=== PATIENT | female | born 1995 | race Caucasian/White ===

== ENCOUNTER 2025-08-22 11:22 | Outpatient (AMB) | payer OTHER, SELFPAY ==
--- NOTE | 2025-08-22 11:23 | A.OFFPC_ITS ---
Vital Signs 08/22/25 11:32 Height 5 ft 2.5 in Weight 219 lb 6 oz BMI 39.5 BP 102/65 Blood Pressure Location Rt brachial Position Sitting Respiration 12 Pulse 59 Pulse Source Pulse Oximeter Temp 97.5 F Temp Source Oral Pulse Oximetry (%) 97 Oxygen Delivery Method Room Air Intake Visit Reasons: CPE/reschedule from 08/14 Intake Note: New patient to establish care and cpe. Community Aide Required: No Allergies No Known Allergies Allergy (Verified 08/22/25 11:44) Medication List - Last Reconciled 08/22/25 by BENNY Padilla No Known Home Meds Tobacco use date assessed: 08/22/25 Dental Screening Dental Screen Date: 08/22/25 Did you have a dental visit in the last 12 months?: No Did you have a dental problem in the last 6 months where you did not have access to dental care?: No Was dental information given to patient?: Yes HPI HPI Comments History of Present Illness Details 30 y/o F with migraine without aura, sea esperanza allergies, obesity, generalized anxiety disorder, Tati's disease, insulin resistance syndrome, elevated CRP, low methylmalonic acid, eczema, dyslipidemia with elevated Apolipo B FHX: Dad alive Htn, hld, asthma, thyroid; mom alive; PGF DM dementia depression etoh; PGM alive; MGM dm 2 dementia, kidney stones; MGF alive dm 2 str mayi lung ca; sister alive thyroid; sister alive allergies Health Maintenance: Tdap 2017 Flu declined 08/22/25 History of Present Illness The patient is a 30-year-old female presenting to establish care and for evaluation of skin concerns. Previous PCP [facility] records rec'd and reviewed Scalp Lesions: - The patient reports bumps on her head that are sometimes sore to the touch, wh ich she describes as half pink brown circles. - She denies they are primarily open sor es, although she may have opened them herself. - She has a history of eczema, which was previously located on her arms. Submammary Rash: - The patient reports an intermittent, f laky rash under her breasts. - She was previously prescribed a medica tion for it that she never picked up, and the rash resolved on its own but has since returned. Tati's Thyroiditis: - The patient has a known history of Has himoto's thyroiditis but is not on any medication and states she does not fully understand the diagnosis. - Her last lab work was performed in , and she has no history of a thyroid ultrasound. Anxiety Disorder: - The patient has a history of generaliz ed anxiety, and recent screening questionnaires were positive for symptoms of anxiety and depression. - She agrees with the screening results, attributing her symptoms over the past couple of weeks to work-related stress. - She is amenable to seeking counseling. Other Medical History: - Past medical history is significant fo r obesity with a BMI of 39.5, migraines without aura, and seasonal allergies. - She has dyslipidemia with an apolipopr otein A of 133 and a normal apolipoprotein B of 88. - Other history includes an elevated CRP of 8.7 in 2022, low methylmalonic acid, and insulin resistance. Past Medical History - Obesity with a BMI of 39.5 - Migraines without aura - Seasonal allergies - Dyslipidemia with elevated apolipoprot ein A of 133 and normal apolipoprotein B of 88 - Elevated C-reactive protein of 8.7 in 2022 - Low methylmalonic acid - Tati's thyroiditis, not currently on medication - Insulin resistance - Generalized anxiety disorder - Eczema, previously on arms Review of Systems - Integumentary: Reports painful bumps o n her scalp and an intermittent, flaky rash under her breasts??. - Neck: Denies pain or tenderness in her neck. - Psychiatric: Endorses symptoms of anxi ety and depression for the past couple of weeks related to work stress. - General: Denies feeling weak or faint with blood draws currently. Physical Exam General: Well developed, well nourished, in no acute distress. Appears stated age. Head: Normocephalic, atraumatic. Well demarcated erythematous plaques on top of scalp; flat brown freckles noted on L scalp Eyes: Pupils are equal, round and reactive to light and accommodation. Conjunctivae are clear. Vision grossly normal. Thyromegaly, no nodules, nontender Lungs: Clear to auscultation bilaterally. No rales, rhonchi or wheeze noted. Good air flow in all mcdonnell. Heart: Regular rate and rhythm. No murmurs, click, rubs or gallops are noted. Pulses: Peripheral pulses are equal and palpable bilaterally. Extremities: No clubbing, cyanosis nor edema is noted. Skin: Faint fungal rash under bilat breasts Psych: Mood and affect appropriate. Patient reports symptoms of anxiety and depression, possibly related to work stress. Results - Labs (2022): Elevated apolipoprotein A of 133, normal apolipoprotein B of 88, and elevated C-reactive protein of 8.7. - Labs (past): History of low methylmalo ryanne acid. Medical Decision Making The patient is a 30-year-old female presenting to [facility] with multiple chronic and acute issues. Her primary complaints today are skin-related, including sore bumps on her scalp and an intermittent rash under her breasts. The scalp lesions are suspicious for scalp psoriasis or eczema, and I will prescribe a topical solution and refer her to dermatology for a definitive diagnosis. The inframammary rash is minimal on exam, which is suggestive of intertrigo, likely candidal. I will prescribe nystatin powder, as she preferred this formulation, with instructions for use. Review of her records indicates a history of Ttai's thyroiditis, for which she is not currently treated, and physical exam reveals a large thyroid gland. I will therefore order updated thyroid function tests and a thyroid ultrasound to evaluate its structure and function. Her intake screening was positive for anxiety and depression, which she attributes to work stress. As she is open to therapy, I will place a referral for behavioral health counseling. We will address these presenting issues today and schedule a full physical examination in 4 weeks to review lab results and response to initial treatments. Plan 1. Scalp Lesions (Likely Psoriasis/Eczem a) - Prescribed a topical solution to be ru bbed into the scalp twice a day after showering. - A referral was placed for dermatology in [place] for further evaluation and management. 2. Submammary Rash (Likely Candidiasis) - Prescribed nystatin powder to be appli ed to the affected area once or twice daily until the rash resolves, with refills provided. - The patient was instructed to stop usi ng the powder once the skin is normal and that it is okay to restart if the rash recurs. 3. Tati's Thyroiditis / Goiter - Ordered updated blood work to check th yroid function. - Ordered a thyroid ultrasound to evalua te the enlarged thyroid gland, to be scheduled via [facility]. 4. Anxiety Disorder - A referral was placed for counseling/t alk therapy; a referral team will contact the patient to set up an appointment. 5. Health Maintenance - The patient declined the influenza vac cine for this season. - Labs will be drawn in the office today . - Scheduled a follow-up appointment for a full physical on September 26 to review results and assess response to treatment. Patient Instructions - Apply the prescribed topical solution to your scalp twice a day after you shower. - Apply the prescribed powder under your breasts once or twice a day until the rash disappears. You can restart it if the rash comes back. - Go for blood work in the office today before you leave. Let the mini lab operator know that you get nervous about needles. - You will get a phone call from [facility] to schedule your thyroid ultrasound. - A referral team will contact you to se t up an appointment with a counselor for anxiety. - Sign up for the [employer] patient portal using the link in the email you rece ived. This link is only active for 24 hours. Use the portal to send messages. - Your next appointment for a full physi gabo is scheduled for September 26. Consent Verbal permission was obtained from the patient before proceeding with the physical examination of her scalp, neck, and the rash under her breasts. The risks of blood draws, specifically fainting, were discussed, and the patient was given the option to lie down for the procedure. The patient agreed to proceed with the blood draw while seated and was advised to inform the mini lab operator of her nervousness. Patient was informed and verbally consented to the use of an ambient scribe for clinic note documentation during this visit. Total time spent caring for the patient today was 45 minutes. This includes time spent before the visit reviewing the chart, time spent during the visit, and time spent after the visit on documentation, reviewing laboratory results, diagnostic imaging, medications, performing a medically necessary evaluation, counseling on diagnoses, care coordination, ordering appropriate tests, ordering appropriate medications, review of tests performed by other providers, reporting test results with the patient, communication with other healthcare providers. 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 1. Little interest or pleasure in doing things: several days 2. Feeling down, depressed, or hopeless: several days 3. Trouble falling or staying asleep, or sleeping too much: several days 4. Feeling tired or having little energy: several days 5. Poor appetite or overeating: not at all 6. Feeling bad about yourself - or that you are a failure or have let yourself or your family down: more than half the days 7. Trouble concentrating on things, such as reading the newspaper or watching television: not at all 8. Moving or speaking so slowly that other people could have noticed. Or the opposite - being so fidgety or restless that you have been moving around a lot more than usual: not at all 9. Thoughts that you would be better off or of hurting yourself in some way: not at all Total score: 6 Depression Screening Interpretation: Positive Depression Screening Follow-up: Existing condition and In treatment Depression Screening Done: Yes 09903 - PHQ-9 Billing: Yes Source: Developed by Drs. Lester Grimes, Carol Thomas, Guillermo Jimenez and colleagues, with an educational jagdeep from [employer]. Thrive Questionnaire Date Thrive assessed: 08/22/25 I am a: Patient What is your living situation today?: I have a steady place to live Within the past 12 months, did the food you bought not last and you didn't have the money to get more?: Never true Within the past 12 months, did you worry whether your food would run out before you got money to buy more?: Never true Do you have trouble paying for medicines?: No Do you have trouble getting transportation to medical appointments?: No Do you have trouble paying your heating and electricity bill?: No Do you have trouble taking care of your child, family member or friend?: No Do you have trouble with day-to-day activities such as bathing, preparing meals, shopping, managing finances, etc.?: No Are you currently unemployed and looking for a job?: No Are you interested in more education?: I choose not to answer this question Please select the resources that you would like help with: None Currently or been in a relationship where the following occur: No concerns reported THRIVE Score: 0 AUDIT C Alcohol Use Questionnaire (AUDIT-C) 1. How often do you have a drink containing alcohol?: 2-4 times a month 2. How many drinks containing alcohol do you have on a typical day when you are drinking?: 3 or 4 3. How often do you have six or more drinks on one occasion?: Less than monthly Total Score: 4 Score Reviewed/Action Taken: Yes NAHEED-7 AMB Questionnaire NAHEED-7 Date NAHEED - 7 assessed: 08/22/25 Feeling nervous, anxious, or on edge: 3 = Nearly every day Not being able to stop or control worryin = Nearly every day Worrying too much about different things: 3 = Nearly every day Trouble relaxin = More than half the days Being so restless that it is hard to sit still: 0 = Not at all Becoming easily annoyed or irritable: 1 = Several days Feeling afraid as if something awful might happen: 2 = More than half the days Total NAHEED-7 score (0-4 normal; 5-9 mild; 10-14 moderate; 15-21 severe): 14 Source: Developed by Drs. Lester Grimes, Carol Thomas, Guillermo Jimenez and colleagues, with an educational jagdeep from [employer]. NAHEED-7 Assessment Billing NAHEED-7 Assessment Tool: NAHEED-7 Assessment 81986 Physical exam (Primary Care) Vital Signs: Last Vital Signs Temp 97.5 F 08/22/25 11:32 Pulse 59 08/22/25 11:32 Resp 12 08/22/25 11:32 BP 102/65 08/22/25 11:32 Pulse Ox 97 08/22/25 11:32 Oxygen Delivery Method Room Air 08/22/25 11:32 BMI result Body Mass Index 39.5 BMI Assessment/Plan discussion: High BMI High, discussed plan: lifestyle Tobacco/Smoking Status: Tobacco use Status Tobacco use date assessed 08/22/25 08/22/25 11:30 Patient Tobacco Use Status Never used Tobacco 08/22/25 11:30 e-Cigarette/Vaping Use Never Used 08/22/25 11:30 PHQ-9: PHQ-9 Score PHQ-9: Total score 6 08/22/25 11:30 Depression Screening Interpretation: Positive Depression Screening Follow-up: Existing condition and In treatment Thrive Assessment: Date of Thrive Assessment Date Thrive assessed 08/22/25 08/22/25 11:30 Currently or been in a relationship where the following occur: No concerns reported Coding Level of Care Code New Pt Level 4 (65957) Complex EM visit Add On G2211 Diagnoses Encounter to establish care Z76.89 Obesity (BMI 30-39.9) E66.9 Migraine without aura and without status migrainosus, not intractable G43.009 Status migrainosus presence: without status migrainosus Intractability: not intractable Seasonal allergies J30.2 Dyslipidemia E78.5 Elevated C-reactive protein (CRP) R79.82 Tati's disease E06.3 Insulin resistance syndrome E88.81 NAHEED (generalized anxiety disorder) F41.1 Eczema L30.9 Scalp psoriasis L40.9 Influenza vaccination declined Z28.21 Additional Codes NAHEED-7 Assessment Billing - NAHEED-7 Assessment Tool: NAHEED-7 Assessment 72937 ([id number]) PHQ-9 - 39565 - PHQ-9 Billing: Yes ([id number]) Assessment & Plan Assessment & Plan (1) Encounter to establish care: Code(s): Z76.89 - Persons encountering health services in other specified circumstances (2) Obesity (BMI 30-39.9): Code(s): E66.9 - Obesity, unspecified Category: Medical (3) Migraine without aura: Code(s): G43.009 - Migraine without aura, not intractable, without status migrainosus Category: Medical Qualifiers: Status migrainosus presence: without status migrainosus Intractability: not intractable Qualified Code(s): G43.009 - Migraine without aura, not intractable, without status migrainosus (4) Seasonal allergies: Code(s): J30.2 - Other seasonal allergic rhinitis Category: Medical (5) Dyslipidemia: Comment: Elevated apolipoprotein a 133 in 2022 Code(s): E78.5 - Hyperlipidemia, unspecified Category: Medical (6) Elevated C-reactive protein (CRP): Onset Date: 2022 Comment: 8.7 Code(s): R79.82 - Elevated C-reactive protein (CRP) Category: Medical (7) Tati's disease: Code(s): E06.3 - Autoimmune thyroiditis Category: Medical (8) Insulin resistance syndrome: Code(s): E88.81 - Metabolic syndrome and other insulin resistance Category: Medical (9) NAHEED (generalized anxiety disorder): Code(s): F41.1 - Generalized anxiety disorder Category: Medical (10) Eczema: Code(s): L30.9 - Dermatitis, unspecified Category: Medical (11) Scalp psoriasis: Code(s): L40.9 - Psoriasis, unspecified Category: Medical (12) Influenza vaccination declined: Onset Date: ~08/22/25 Code(s): Z28.21 - Immunization not carried out because of patient refusal Category: Medical Plan . Orders: Orders Complete Blood Count no Diff Today E06.3 - Autoimmune thyroiditis, E66.9 - Obesity, unspecified, E78.5 - Hyperlipidemia, unspecified, E88.81 - Metabolic syndrome and other insulin resistance Comprehensive Met. Panel Today E06.3 - Autoimmune thyroiditis, E66.9 - Obesity, unspecified, E78.5 - Hyperlipidemia, unspecified, E88.81 - Metabolic syndrome and other insulin resistance Hemoglobin A1c Today E06.3 - Autoimmune thyroiditis, E66.9 - Obesity, unspecified, E78.5 - Hyperlipidemia, unspecified, E88.81 - Metabolic syndrome and other insulin resistance Lipid Panel Today E06.3 - Autoimmune thyroiditis, E66.9 - Obesity, unspecified, E78.5 - Hyperlipidemia, unspecified, E88.81 - Metabolic syndrome and other insulin resistance Microalbumin, Random (w Creat) Today E06.3 - Autoimmune thyroiditis, E66.9 - Obesity, unspecified, E78.5 - Hyperlipidemia, unspecified, E88.81 - Metabolic syndrome and other insulin resistance TSH reflex Free T4 Today E06.3 - Autoimmune thyroiditis, E66.9 - Obesity, unspecified, E78.5 - Hyperlipidemia, unspecified, E88.81 - Metabolic syndrome and other insulin resistance Vitamin D 25-OH Total Today E06.3 - Autoimmune thyroiditis, E66.9 - Obesity, unspecified, E78.5 - Hyperlipidemia, unspecified, E88.81 - Metabolic syndrome and other insulin resistance Vitamin B12 and Folate Today E06.3 - Autoimmune thyroiditis, E66.9 - Obesity, unspecified, E78.5 - Hyperlipidemia, unspecified, E88.81 - Metabolic syndrome and other insulin resistance US thyroid Today E06.3 - Autoimmune thyroiditis Referrals Dermatology Referral L30.9 - Dermatitis, unspecified, L40.9 - Psoriasis, unspecified Nurse Navigator Referral F41.1 - Generalized anxiety disorder Medications: New fluocinonide 0.05% 1 appl topical BID-QID PRN 60 mL 0RF rash nystatin 1 appl topical DAILY 30 grams 2RF Patient Instructions: Walk-In Care (Urgent Care): We Make it Easy Walk-in for urgent medical issues such as: ? Seasonal Allergies ? Insect Bites ? Cough ? Diarrhea ? Acute Asthma Attacks ? Back, Knee or Joint Pain ? Ear Infection ? Fever without a Rash ? Headaches ? Nausea ? [place] Eye, Rash or Skin Irritation ? Sore Throat ? Sports Physicals ? Vomiting Most insurances are accepted. Patients do not need to be part of the [facility] to seek care at the walk-in clinic. Locations [address] [place] [address] Open Monday through Monday 8am-5pm *Hours may vary due to staffing availability. To confirm Walk-In Care hours please call. [address] [place] [address] , [place] [address] ? [phone] [facility] in [place] provides services to ages 18 and over. Open Monday-Monday: 7 a.m. to 5 p.m. and Monday: 9 a.m. to 3 p.m.* *Hours may vary due to staffing availability. To confirm Walk-In Care hours in [place], please call [phone]. [address] [place] [id number] ? [phone] [facility] [place] provides services to ages 12 and over. Open Monday-Monday: 8 a.m. to 5 p.m. Hours may vary due to staffing availability. To confirm Walk-In Care hours in [place], please call [phone]. LABORATORY SERVICES: [facility] ? Primary Location [address] [place] [address] Monday through Monday 6:00 AM ? 5:00 PM Monday 7:00 AM ? 11:00 AM* [phone] The [facility] Lab is centrally located near the front entrance of the [facility] for easy outpatient access. Convenient parking is provided for outpatients. *Hours may vary due to staffing availability. To confirm Laboratory hours for any location, please call [phone]. Offsite Location For your convenience, we offer offsite laboratory draw stations at the following locations: [address] [facility], [place] ? [address] [facility], [address], [place] Monday through Monday 7:30 AM ? 1:00 PM* [phone] *Hours may vary due to staffing availability. To confirm Laboratory hours for any location, please call [phone]. [place] ? [facility] [address] [facility], [place] Monday through Monday 6:00 AM ? 3:30 PM* Monday 6:30 AM ? 3 PM* [phone] *Hours may vary due to staffing availability. To confirm Laboratory hours for any location, please call [phone]. [address] [facility] Monday through Monday 7:30 AM ? 4:00 PM* [phone] *Hours may vary due to staffing availability. To confirm Laboratory hours for any location, please call [phone] [place] [address] Monday through 9:00 AM ? 4:00 PM* *Hours may vary due to staffing availability. To confirm Laboratory hours for any location, please call [phone]. Appointments are not necessary. Walk-ins are welcome. Like all the departments throughout the [facility], our Lab undergoes frequent reviews to ensure the quality and accuracy of test results, and our staff takes special pride in its status as a nationally accredited facility. Patient Portal: [facility] ONE PATIENT. ONE RECORD. BETTER CARE. [facility] has a fully integrated, cutting- edge mobile electronic health information system that has revolutionized the way we care for our patients and manage our organization. This system improves communication and coordination enabling us to provide safe, higher-quality care, and an overall positive experience for staff and patients. Our first priority, as always, is to deliver the highest quality care possible. The system is running in the background supporting that priority. This portal is for all [facility] services and practices. If you are experiencing any technical difficulties with enrolling or logging into the Patient Portal please complete the [facility] Patient Portal Technical Support Form. [facility] now offers a new secure on-line interactive tool for patients to review their health information ? ?Patient Portal. This interactive web portal will enable patients and their families to take an active role in their care by providing easy, secure access to their health information via the internet. The Patient Portal provides patients with instant access to their health information, including laboratory results, medications, allergies, demographic information, visit history, and more. In addition to managing their own care, parents and health care proxies with authorized consent will appreciate the ability to access the records of those individuals for whom they provide care. Please note: if you wish to gain access (Proxy) to another patient?s portal, you will be required to come to the Medical Records Department in person at [facility]. Both the patient giving proxy access and the proxy will need to provide photo identification and complete the appropriate authorization. The Patient Portal also allows track their appointments online. The [facility] Patient Portal also saves patients time by allowing them to submit updates to their demographic and contact information prior to their visits. Portal email notifications will also alert patients to any new activity on their portal, such as test results and new appointments. In order to initially enroll in the [facility] Patient Portal, you will need to enter some required information including the following: * your [facility] Medical Record number * your personal home email address * name * date of Please note: In order to enroll in the [facility] Patient Portal, we need to have your email address on file in your electronic medical record. ?The email address needs to be specific for one person (yourself) in order for your Portal enrollment to be successful. ?You can update your email address in person with our Registration staff when you are registering for a hospital visit. ?Otherwise, you will need to come to the Health Information Management (Medical Records) Department at [facility]. ?We are open from Monday ? Monday from 7:30 a.m. ? 4:30 p.m. ?You will be required to present a photo id. Once you have successfully enrolled in the Patient Portal, you will receive a one-time user id and password for the Portal, sent to your email address. ?This will allow you to log into the Patient Portal within 99 hrs and reset your own logon id and password, and define personal security questions. ?Once your permanent login and password have been set, you can log into the [facility] Patient Portal at any time via the blue button above or from the Portal Logon button on any page of the [facility] website. [facility] and [facility] encourage all of our patients to enroll in Patient Portal as it presents a valuable opportunity for patients and their families to actively participate in their care and stay healthy Welcome to [facility]. ?We look forward to working with you.
[2025-08-22 11:32] VITALS: BP 102/65; PULSE 59; RESP 12; TEMP 36.4; O2SAT 97; BMI 39.5
--- OUTSIDE RECORDS SUMMARY | 2025-08-22 13:42 | XMS_ITS ---
Author Name [facility] Organization Unknown Care Team Organization Name Specialty Phone Email Start Date End Da te [facility] Cb Waldrop DO Primary Care 08/23/202205/16
== END 2025-08-22 11:59 | disposition home or self-care (01) ==
LOC: HO.HMCFM 11:23
PROVIDERS: Visit Provider Nurse Practitioner Family
DX: E66.9 Obesity, unspecified (principal); Z68.39 Body mass index [BMI] 39.0-39.9, adult; E06.3 Autoimmune thyroiditis; L30.9 Dermatitis, unspecified; L40.9 Psoriasis, unspecified; E78.5 Hyperlipidemia, unspecified; F41.1 Generalized anxiety disorder; G43.009 Migraine without aura, not intractable, without status migrainosus; J30.2 Other seasonal allergic rhinitis; R79.82 Elevated C-reactive protein (CRP); E88.81 Metabolic syndrome and other insulin resistance

== ENCOUNTER 2025-08-22 11:22 | Outpatient (REF) | payer OTHER, SELFPAY ==
[2025-08-22 14:22] LABS: Hematocrit 42.0 % (37.0-47.0); Hemoglobin 13.5 g/dl (12.0-16.0); Mean Corpuscular HGB Conc 32.1 g/dl (31.0-35.0); Mean Corpuscular Hemoglobin 28.0 pg (27.0-33.0); Mean Corpuscular Volume 87.1 fL (80.0-98.0); NRBC Abs Auto 0.000 X10*3/uL (0.0-0.012); NRBC Pct Auto 0.0 /100WBC (0.0-0.2); Platelet Count 334 X10*3/uL (160-400); Red Blood Count 4.82 X10*6/uL (4.20-5.50); White Blood Count 7.3 X10*3/uL (4.8-10.8)
[2025-08-22 14:53] LABS: Alanine Aminotransferase 33 U/L (0-31); Albumin Level 4.5 g/dL (3.5-5.0); Alkaline Phosphatase 71 U/L (39-117); Anion Gap 9 (12-20); Aspartate Amino Transferase 30 U/L (5-31); Blood Urea Nitrogen 8 mg/dL (9-16); Calcium 9.1 mg/dL (8.4-10.2); Carbon Dioxide 28 mmol/L (22-29); Chloride 104 mmol/L (96-108); Cholesterol 183 mg/dL (<200); Estimated Glomerular Filt Rate > 60; HDL Cholesterol 46 mg/dL (>40); Potassium 3.9 mmol/L (3.3-5.1); Sodium 137 mmol/L (135-145); Total Protein 7.6 g/dL (6.5-8.0); Triglycerides 115 mg/dL (<150)
[2025-08-22 15:19] LABS: Folate 4.7 ng/mL (> or = 4.0); Vitamin B12 341 pg/mL (200-900)
== END 2025-08-22 11:23 | disposition home or self-care (01) ==
LOC: HO.WFDLDS 11:22
PROVIDERS: Visit Provider Nurse Practitioner Family
DX: E06.3 Autoimmune thyroiditis (principal); F41.9 Anxiety disorder, unspecified; G43.009 Migraine without aura, not intractable, without status migrainosus; J30.2 Other seasonal allergic rhinitis; E78.5 Hyperlipidemia, unspecified; R79.82 Elevated C-reactive protein (CRP); E88.81 Metabolic syndrome and other insulin resistance; E88.819 Insulin resistance, unspecified; F41.1 Generalized anxiety disorder; L30.9 Dermatitis, unspecified; L40.9 Psoriasis, unspecified; Z28.21 Immunization not carried out because of patient refusal; Z76.89 Persons encountering health services in other specified circumstances; Z13.1 Encounter for screening for diabetes mellitus
CPT/HCPCS: 36415; 80053; 80061; 82306; 82570; 82607; 82746; 83036; 84443; 85027; 96127

== ENCOUNTER 2025-09-26 10:13 | Outpatient (AMB) | payer OTHER, SELFPAY ==
--- NOTE | 2025-09-26 10:17 | A.OFFPC_ITS ---
Vital Signs 09/26/25 10:33 Height 5 ft 2.5 in Weight 217 lb 6 oz BMI 39.1 BP 101/67 Blood Pressure Location Lt brachial Position Sitting Respiration 12 Pulse 62 Pulse Source Pulse Oximeter Temp 97.2 F Temp Source Oral Pulse Oximetry (%) 98 Oxygen Delivery Method Room Air Intake Visit Reasons: sep 26 (CPE and lab review) Intake Note: CPE and review labs. 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: No Allergies No Known Allergies Allergy (Verified 09/26/25 11:04) Medication List - Last Reconciled 09/26/25 by Gege Tucker, HOME ADMINISTRATOR-BC fluocinonide 0.05% 1 appl topical BID-QID PRN nystatin 1 appl topical DAILY Tobacco use date assessed: 09/26/25 Dental Screening Dental Screen Date: 09/26/25 Did you have a dental visit in the last 12 months?: Yes Did you have a dental problem in the last 6 months where you did not have access to dental care?: No Was dental information given to patient?: Patient has dentist HPI HPI Comments History of Present Illness Details 30 y/o F with migraine without aura, sea [place] allergies, obesity, generalized anxiety disorder, Tati's disease, insulin resistance syndrome, elevated CRP, low methylmalonic acid, eczema, dyslipidemia with elevated Apolipo B FHX: Dad alive Htn, hld, asthma, thyroid; mom alive; PGF DM dementia depression etoh; PGM alive; MGM dm 2 dementia, kidney stones 2024; MGF alive dm 2 stroke lung ca; sister alive thyroid; sister alive allergies Surgery: wisdom tooth extraction Social: Lives w/ parents. Works at [employer]. Health Maintenance: Tdap 2016 Flu declined 08/22/25 [facility] wears glasses, last exam 09/24/25 Derm waiting on initial appt History of Present Illness The patient is a 30-year-old female presenting for a physical exam. Obesity: - The patient has a history of obesity w ith a BMI of 39.1. Vitamin D Deficiency and Hyperlipidemia: - Lab work from August 22, 2025, showed a vitamin D level of 19.8 ng/mL, which is below the normal range of >30 ng/mL. - The same labs revealed an LDL choleste rol level of 114 mg/dL. Thyromegaly and possible Tati's: - An ultrasound of the thyroid was order ed to evaluate for thyromegaly and Tati's thyroiditis, but the patient has not yet scheduled this. - Her TSH level was normal on recent blo od work. Scalp Lesions and Submammary Rash: - At a previous visit, the patient compl ained of scalp lesions and was prescribed topical fluocinonide. - She also had a submammary rash for whi ch she was prescribed medication. - The patient reports she has not yet pi cked up or started the prescribed treatments for either condition. Intermittent Low Back Pain: - The patient reports intermittent right lower back pain, which she attributes to possibly sitting too much. - She denies any trauma to her back. Past Medical History - Obesity with a BMI of 39.1 - Vitamin D deficiency - Hyperlipidemia - Mildly elevated ALT - History of scalp lesions - History of submammary rash Past Surgical History - The patient denies any history of surg eries. Family History - Her maternal grandmother recently pass ed away at the age of 95 from old age. Social History - The patient reports feeling safe at [facility]. 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 - She does not have any pets but would l wendi one. - The patient is currently coping with t he recent loss of her maternal grandmother. Health Maintenance - Immunizations: Tdap is up to date, las t received in 2017. She previously declined the flu shot. - Eye exam: Last eye exam was two days a go, and her prescription has improved. - Labs: Recent labs were completed to be reviewed during this physical exam. Review of Systems - Dermatologic: Reports scalp lesions an d a submammary rash. - Eyes: Reports her vision has improved and her prescription is lower. - Musculoskeletal: Reports intermittent right low back pain, which sometimes occurs with sitting for long periods. - Constitutional: Denies diabetes or pre diabetes based on lab results. Physical Exam General: Well developed, well nourished, in no acute distress. Appears stated age. Head: Normocephalic, atraumatic. Well demarcated erythematous plaques on top of scalp; flat brown freckles noted on L scalp Eyes: Pupils are equal, round and reactive to light and accommodation. Conjunctivae are clear. Scleras nonicteric bilat. Vision grossly normal. Recent eye exam showed improved vision with a lower prescription. Ears: TMs clear AU, EACS WNL Nose: Patent, without discharge. Neck: No carotid bruit bilat. Supple, no adenopathy or thyromegaly. Ultrasound of thyroid pending to evaluate Tati's and thyromegaly. Breast: Edu on SBE. Submammary rash noted, treatment with prescribed cream pending. Lungs: Clear to auscultation bilaterally. No rales, rhonchi or wheeze noted. Good air flow in all mcdonnell. Heart: Regular rate and rhythm. No murmurs, click, rubs or gallops are noted. Abdomen: Bowel sounds present in all quadrants. The abdomen is soft, nontender, with no masses or organomegaly noted. No hernias are noted. : Deferred. Reviewed MICAELA & recommendations for routine CLINICAL APPLICATIONS MANAGER. Pulses: Peripheral pulses are equal and palpable bilaterally. Extremities: No clubbing, cyanosis nor edema is noted. Neurologic: Gait and station normal. Cranial Nerves 2-12 intact. Motor strength grossly symmetrical and intact. No sensory loss. Balance normal. Skin: No rashes, ulcers, or lesions noted. Turgor is good. Skin color is good. Hair and nails are without abnormalities. Scalp lesions present, treatment with topical fluocinonide pending. Faint fungal rash under bilat breasts Psych: Normal eye contact, affect and mood appropriate, and normal interactions. Patient is alert and appropriate to context. Coping with recent family loss. Results - Labs (08/22/2025): - CBC: Normal. - Comprehensive Metabolic Panel: Electro lytes and kidney function are normal. ALT is mildly elevated at 33 U/L (normal <31 U/L). Protein stores are good. - A1c: No evidence of diabetes or predia betes. - Lipid Panel: LDL is elevated at 114 mg /dL. - Vitamin B12: Normal. - Vitamin D, 25-Hydroxy: Low at 19.8 ng/ mL (normal >30 ng/mL). - TSH: Normal. - Urinalysis: Normal. Medical Decision Making The patient is a 30-year-old female here for a physical exam and review of recent lab work. Her labs revealed a vitamin D level of 19.8 ng/mL, requiring supplementation, which will be prescribed. She has an elevated LDL of 114 mg/dL and a mildly elevated ALT of 33 U/L, both of which are not immediately concerning but warrant monitoring. An outstanding order for a thyroid ultrasound to evaluate for thyromegaly and possible Tati's still needs to be completed, despite a normal TSH, for thorough evaluation. No thyroid medication is indicated at this time. The patient has not started the prescribed treatments (topical fluocinonide and another cream) for her scalp lesions and submammary rash, respectively. She will be encouraged to begin the treatments and to establish care with dermatology in case the issues persist. The plan is to follow up in six months to repeat labs, including vitamin D, lipids, A1c, and liver function tests, to assess her response to supplementation and to trend her other values. The need for long-term vitamin D will be re- evaluated at that time. Ultrasound results will be communicated via message if normal or a telehealth visit if a discussion is needed. Plan 1. Vitamin D Deficiency - The patient's vitamin D level was low at 19.8 ng/mL. - A vitamin D supplement will be prescri bed to be taken once daily. - The medication can be taken at any fabi e of day and is not expected to cause side effects. - Plan to repeat vitamin D levels in denisse roximately six months to determine if continued supplementation is necessary. 2. Hyperlipidemia - The patient's LDL cholesterol was elev ated at 114 mg/dL. - No immediate medication is planned, bu t her cholesterol will be trended over time. - Cholesterol levels will be rechecked a long with other labs in six months. 3. Scalp Lesions And Submammary Rash - The patient has not started the prescr ibed topical fluocinonide for scalp lesions or the cream for the submammary rash. - She was encouraged to pick up man her pres criptions and start treatment. - A referral to dermatology is recommend ed in case the prescribed treatments are not effective. 4. Thyromegaly/Rule Out Tati's - The patient has not yet scheduled a pr eviously ordered thyroid ultrasound. - Despite a normal TSH, it is recommende d to proceed with the ultrasound for safety and a complete evaluation. - No medication is needed at this time. - The results will be communicated via [employer] portal message if normal or via a telehealth visit if there are findings to discuss. 5. Wellness And Health Maintenance - A follow-up visit is scheduled for six months. - Labs, including repeat vitamin D, chol esterol, A1c, and LFTs, are to be drawn one week prior to the follow-up appointment. - The lab draw will be non-fasting. 6. Elevated Liver Enzymes - The patient has a mild elevation in he r ALT at 33 U/L, which is not considered worrisome at this time. - Liver function tests will be rechecked in six months to monitor the trend. Patient Instructions - hospital superintendent and start using the prescribed creams for your scalp and the rash under your breasts. - Begin taking the new vitamin D supplem ent once a day. You can take it at any time, with or without food. - Schedule the thyroid ultrasound that w as previously ordered. We have provided you with the contact information. - Contact a dermatology office to make a n appointment, in case your skin rashes do not improve with the prescribed creams. - Schedule a follow-up appointment with me in six months. - About one week before your next appoin tment, go to the lab to have your blood drawn. You do not need an appointment for the lab, and you do not need to fast (you can eat and drink beforehand). - I will contact you with the results of your thyroid ultrasound. If it's no rmal, I'll send a message. If we need to talk about the results, my office will schedule a video visit with you. Consent Patient was informed and verbally consented to the use of an ambient scribe for clinic note documentation during this visit. [facility] Medical History (Updated 09/26/25 @ 11:[address] [facility] [place]) Asthma Sinusitis Surgical History (Updated 08/22/25 @ 12:18 by Porsha Gibson MA) H/O wisdom tooth extraction Family History (Updated 08/22/25 @ 12:21 by Porsha Gibson MA) Father Asthma High cholesterol Thyroid disorder Paternal Grandfather Diabetes Maternal Grandmother No problems noted. Maternal Grandfather Cancer Maternal Grandfather Diabetes Social History (Updated 08/22/25 @ 12:18 by Porsha Gibson MA) Household Members: Spouse Both parents involved: No Caregiver staying overnight: No Housing: House Are you a primary home health care provider to a significant other at home: No Do you presently have visiting nurse or other home services: No 75 years or older and lives alone: No Alcohol intake: current Alcohol intake frequency: a few times a month Patient Tobacco Use Status: Never used Tobacco e-Cigarette/Vaping Use: Never Used Second Hand Smoke Exposure: No service: No Current occupational status: employed 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 1. Little interest or pleasure in doing things: not at all 2. Feeling down, depressed, or hopeless: not at all 3. Trouble falling or staying asleep, or sleeping too much: not at all 4. Feeling tired or having little energy: not at all 5. Poor appetite or overeating: not at all 6. Feeling bad about yourself - or that you are a failure or have let yourself or your family down: not at all 7. Trouble concentrating on things, such as reading the newspaper or watching television: not at all 8. Moving or speaking so slowly that other people could have noticed. Or the opposite - being so fidgety or restless that you have been moving around a lot more than usual: not at all 9. Thoughts that you would be better off or of hurting yourself in some way: not at all Total score: 0 Depression Screening Interpretation: Negative Depression Screening Done: Yes 38813 - PHQ-9 Billing: Yes Source: Developed by Drs. Lester Grimes, Carol Thomas, Guillermo Jimenez and colleagues, with an educational jagdeep from [employer]. Thrive Questionnaire Date Thrive assessed: 09/26/25 I am a: Patient What is your living situation today?: I have a steady place to live Within the past 12 months, did the food you bought not last and you didn't have the money to get more?: Never true Within the past 12 months, did you worry whether your food would run out before you got money to buy more?: Never true Do you have trouble paying for medicines?: No Do you have trouble getting transportation to medical appointments?: No Do you have trouble paying your heating and electricity bill?: No Do you have trouble taking care of your child, family member or friend?: No Do you have trouble with day-to-day activities such as bathing, preparing meals, shopping, managing finances, etc.?: No Are you currently unemployed and looking for a job?: No Are you interested in more education?: I choose not to answer this question Please select the resources that you would like help with: None Currently or been in a relationship where the following occur: No concerns reported THRIVE Score: 0 NAHEED-7 AMB Questionnaire NAHEED-7 Date NAHEED - 7 assessed: 09/26/25 Feeling nervous, anxious, or on edge: 0 = Not at all Not being able to stop or control worryin = Not at all Worrying too much about different things: 0 = Not at all Trouble relaxin = Not at all Being so restless that it is hard to sit still: 0 = Not at all Becoming easily annoyed or irritable: 0 = Not at all Feeling afraid as if something awful might happen: 0 = Not at all Total NAHEED-7 score (0-4 normal; 5-9 mild; 10-14 moderate; 15-21 severe): 0 Source: Developed by Drs. Lester Grimes, Carol Thomas, Guillermo Jimenez and colleagues, with an educational jagdeep from [employer]. NAHEED-7 Assessment Billing NAHEED-7 Assessment Tool: NAHEED-7 Assessment 85432 Physical exam (Primary Care) Vital Signs: Last Vital Signs Temp 97.2 F 09/26/25 10:33 Pulse 62 09/26/25 10:33 Resp 12 09/26/25 10:33 BP 101/67 09/26/25 10:33 Pulse Ox 98 09/26/25 10:33 Oxygen Delivery Method Room Air 09/26/25 10:33 BMI result Body Mass Index 39.1 Tobacco/Smoking Status: Tobacco use Status Tobacco use date assessed 09/26/25 09/26/25 10:18 Patient Tobacco Use Status Never used Tobacco 09/26/25 10:18 e-Cigarette/Vaping Use Never Used 09/26/25 10:18 PHQ-9: PHQ-9 Score PHQ-9: Total score 0 09/26/25 10:18 Depression Screening Interpretation: Negative Thrive Assessment: Date of Thrive Assessment Date Thrive assessed 09/26/25 09/26/25 10:18 Currently or been in a relationship where the following occur: No concerns reported Results Reviewed Results Reviewed: Labs from 08/22/25 Vit d 19.8, LDL 114, ALT 33 otherwise wnl US schedule (printed) Coding Level of Care Code Est Pt Prev Care 18-39y(72040) Add On Preventative Visit Only Diagnoses Adult general medical exam Z00.00 Vitamin D deficiency E55.9 Dyslipidemia E78.5 Additional Codes NAHEED-7 Assessment Billing - NAHEED-7 Assessment Tool: NAHEED-7 Assessment 72931 ([id number]) PHQ-9 - 47278 - PHQ-9 Billing: Yes ([id number]) Assessment & Plan Assessment & Plan (1) Adult general medical exam: Onset Date: ~09/26/25 Code(s): Z00.00 - Encounter for general adult medical examination without abnormal findings Category: Medical (2) Vitamin D deficiency: Code(s): E55.9 - Vitamin D deficiency, unspecified Category: Medical (3) Dyslipidemia: Comment: Elevated apolipoprotein a 133 in 2022 Code(s): E78.5 - Hyperlipidemia, unspecified Category: Medical Plan . Orders: Orders Lipid Panel 6 Months E55.9 - Vitamin D deficiency, unspecified, E78.5 - Hyperlipidemia, unspecified Vitamin D 25-OH Total 6 Months E55.9 - Vitamin D deficiency, unspecified, E78.5 - Hyperlipidemia, unspecified Hemoglobin A1c 6 Months E55.9 - Vitamin D deficiency, unspecified, E78.5 - Hyperlipidemia, unspecified Comprehensive Met. Panel 6 Months E55.9 - Vitamin D deficiency, unspecified, E78.5 - Hyperlipidemia, unspecified Medications: New cholecalciferol (vitamin D3) 50 mcg PO DAILY 90 caps 2RF Patient Instructions: Health screenings for women You should visit your health care provider from time to time, even if you are healthy. The purpose of these visits is to: Screen for medical issues Assess your risk for future medical problems Encourage a healthy lifestyle Update vaccinations and other preventive care services Help you get to know your provider in case of an illness Information Even if you feel fine, you should still see your provider for regular checkups. These visits can help you avoid problems in the future. For example, the only way to find out if you have high blood pressure is to have it checked regularly. High blood sugar and high cholesterol levels also may not have any symptoms in the early stages. A simple blood test can check for these conditions. There are specific times when you should see your provider or receive specific health screenings. The [place] Preventive Services Task Force publishes a list of recommended screenings. Below are screening guidelines for women ages 18 to 39. BLOOD PRESSURE SCREENING Your blood pressure should be checked at least once every 3 to 5 years if: Your blood pressure is in the normal range (top number less than 120 mm Hg and bottom number less than 80 mm Hg) You don't have risk factors for high blood pressure Ask your provider if you need your blood pressure checked more often if: The top number is 120 to 129 mm Hg or the bottom number is 70 to 79 mm Hg You have diabetes, heart disease, kidney problems, are overweight, or have certain other health conditions You have a first-degree relative with high blood pressure You are Black You had high blood pressure during a If the top number is 130 mm Hg or greater or the bottom number is 80 mm Hg or greater, this is considered stage 1 hypertension. Schedule an appointment with your provider to learn how you can reduce your blood pressure. Watch for blood pressure screenings in your area. Ask your provider if you can s top in to have your blood pressure checked. BREAST CANCER SCREENING Experts do not agree about the benefits of breast self-exams in finding breast cancer or saving lives. Talk to your provider about what is best for you. A screening mammogram is not recommended for most women under age 40. Your provider may discuss and recommend mammograms, MRI scans, or ultrasounds if you have an increased risk for breast cancer, such as: A mother or sister who had breast cancer at a young age (most often starting screening earlier than the age the close relative was diagnosed) You carry a high-risk genetic marker CERVICAL CANCER SCREENING Cervical cancer screening should start at age 21 years unless your provider advises otherwise. After the first test: Women ages 21 through 29 should have a Pap test every 3 years. Exoprts do not agree on whether HPV testing is recommended for this age group. Women ages 30 through 65 should be screened with either a Pap test every 3 years or the HPV test every 5 years or both tests every 5 years (called cotesting ). Women who have been treated for precancer (cervical dysplasia) should continue to have Pap tests for 20 years after treatment or until age 65, whichever is longer. If you have had your uterus and cervix removed (total hysterectomy), and you have not been diagnosed with cervical cancer or precancer (high grade cervical neoplasia), you do not need cervical cancer screening. CHOLESTEROL SCREENING Cholesterol screening should begin at: Age 45 for women with no known risk factors for coronary heart disease Age 20 for women with known risk factors for coronary heart disease Repeat cholesterol screening should take place: Every 5 years for women with normal cholesterol levels More often if changes occur in lifestyle (including weight gain and diet) More often if you have diabetes, heart disease, kidney problems, or certain other conditions DIABETES SCREENING You should be screened for diabetes starting at age 35 and then repeated every 3 years if you have no risk factors for diabetes. Screening may need to start earlier and be repeated more often if you have other risk factors for diabetes, such as: You have a first degree relative with diabetes. You are overweight or have obesity. You have high blood pressure, prediabetes, or a history of heart disease. Screening for diabetes should be done if you are planning to become and you are overweight and have other risk factors such as high blood pressure. DENTAL EXAM Go to the dentist once or twice every year for an exam and cleaning. Your dentist will evaluate if you need more frequent visits. EYE EXAM Have an eye exam every 5 to 10 years before age 40. If you have vision problems, have an eye exam every 2 years or more often if recommended by your provider. You should have an eye exam that includes an examination of your retina (back of your eye) at least every year if you have diabetes. IMMUNIZATIONS Commonly needed vaccines include: Flu shot: get one every year. COVID-19 vaccine: ask your provider what is best for you. Tetanus-diphtheria and acellular pertussis (Tdap) vaccine: have one at or after age 19 as one of your tetanus-diphtheria vaccines if you did not receive it as an adolescent. Tetanus-diphtheria: have a booster (or Tdap) every 10 years. Varicella vaccine: receive 2 doses if you never had chickenpox or the varicella vaccine. Hepatitis B vaccine: receive 2, 3, or 4 doses, depending on your exact circumstances. Measles, mumps, and rubella (MMR) vaccine: receive 1 to 2 doses if you are not already immune to MMR. Your provider can tell you if you are immune. Ask your provider about the human papillomavirus (HPV) vaccine if: You have not received the HPV vaccine in the past You have not completed the full vaccine series (you should catch up on this shot) Ask your provider if you should receive other immunizations if you have certain health problems that increase your risk for some diseases such as pneumonia. INFECTIOUS DISEASE SCREENING Women who are sexually active should be screened for chlamydia and gonorrhea up until age 25. Women 25 years and older should be screened for chlamydia and gonorrhea if at high risk. Screening for hepatitis C: All adults ages 18 to 79 should get a one-time test for hepatitis C. people should be screened at every . Screening for human immunodeficiency virus (HIV): All people ages 15 to 65 should get a one-time test for HIV. Depending on your lifestyle and medical history, you may also need to be screened for infections such as syphilis and HIV, as well as other infections. PHYSICAL EXAM All adults should visit their provider from time to time, even if they are healthy. The purpose of these visits is to: Screen for disease Assess your risk of future medical problems Encourage a healthy lifestyle Update your vaccinations and other preventive care services Maintain a relationship with a provider in case of an illness Your height, weight, and BMI should be checked at every exam. During your exam, your provider may ask you about: Depression and anxiety Diet and exercise Alcohol and tobacco use Safety issues, such as using seat belts, smoke detectors, and intimate partner violence Your medicines and risk for interactions SKIN SELF-EXAM Your provider may check your skin for signs of skin cancer, especially if you're at high risk, such as if you: Have had skin cancer before Have close relatives with skin cancer Have a weakened immune system OTHER SCREENING Talk with your provider about colon cancer screening if you have a strong family history of colon cancer or polyps, or if you have had inflammatory bowel disease or polyps yourself. Routine bone density screening of women under 40 is not recommended.
[2025-09-26 10:33] VITALS: BP 101/67; PULSE 62; RESP 12; TEMP 36.2; O2SAT 98; BMI 39.1
== END 2025-09-26 11:15 | disposition home or self-care (01) ==
LOC: HO.HMCFM 10:14
PROVIDERS: PCP Nurse Practitioner Family; Visit Provider Nurse Practitioner Family
DX: Z00.00 Encounter for general adult medical examination without abnormal findings (principal); E55.9 Vitamin D deficiency, unspecified; E78.5 Hyperlipidemia, unspecified

== ENCOUNTER → 2025-09-26 10:13 | Outpatient (BNVA) | payer OTHER, SELFPAY | PROVIDERS: PCP Nurse Practitioner Family; Visit Provider Nurse Practitioner Family | DX: Z00.00 Encounter for general adult medical examination without abnormal findings (principal); E55.9 Vitamin D deficiency, unspecified; E78.5 Hyperlipidemia, unspecified | CPT/HCPCS: 96127 ==